=== PATIENT | female | born 1975 | race Caucasian/White ===

== ENCOUNTER 2020-10-19 23:25 | Observation (INO) | payer BC ==
--- NOTE | 2020-10-20 01:40 | EDM.PDOC ---
ED HPI GENERAL MEDICAL PROBLEM - General Chief Complaint: Behavioral/Psych Stated Complaint: DIABETIC/MENTAL HEALTH ISSUES Time Seen by Provider: 10/19/20 23:26 Source of Information: Reports: Patient, EMS History Limitations: Reports: No Limitations - History of Present Illness INITIAL COMMENTS - FREE TEXT/NARRATIVE: Quynh is a 45-year-old female presenting to the ED via [facility] from [facility] [place] this [place]. The patient was in her usual state of health until she started to act confused. Her mother reports that she smoked something that was given to her from somebody she did not know and became combative, argumentative with her mother, and then physically combative. Upon arrival EMS administered 5 of Haldol and 5 of Versed. The patient was placed in restraints and transported to the hospital. Upon arrival to the ED, the patient was calm. She did answer most questions. She reported having a beer and then smoking something. 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 She is unsure of what exactly she smoked but she thought it was marijuana. In addition to the history of abuse, the patient has a history for diabetes. EMS reports that her sugar was 238. On arrival to the ED she is 203. The patient does seem a little lethargic likely secondary to the Versed. 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: See EMS Report - Related Data Allergies Allergy/AdvReac Type Severity Reaction Status Date / Time Penicillins Allergy Rash Verified 10/19/20 23:34 Home Meds: Home Meds Gabapentin [Neurontin] 100 mg PO ASDIRECTED 10/19/20 [History] Insulin Aspart [NovoLOG] 1 unit SQ ASDIRECTED 10/19/20 [History] buPROPion [Wellbutrin SR] 150 mg PO DAILY 10/19/20 [History] Past Medical History Musculoskeletal History: Reports: Fracture, Neck Pain, Chronic Psychiatric History: Reports: Addiction, Anxiety, Bipolar, Depression Endocrine/Metabolic History: Reports: Diabetes, Type I - Infectious Disease History Infectious Disease History: Reports: Chicken Pox Social & Family History - Family History Family Medical History: No Pertinent Family History - Tobacco Use Tobacco Use Status *Q: Current Every Day Tobacco User Years of Tobacco use: 30 Packs/Tins Daily: 0.5 - Caffeine Use Caffeine Use: Reports: Coffee - Alcohol Use Date of Last Drink: 10/19/20 Time of Last Drink: 23:00 - Recreational Drug Use Recreational Drug Use: No ED ROS GENERAL - Review of Systems Review Of Systems: See Below Constitutional: Reports: No Symptoms HEENT: Reports: No Symptoms Respiratory: Reports: No Symptoms Cardiovascular: Reports: No Symptoms Endocrine: Reports: No Symptoms GI/Abdominal: Reports: No Symptoms : Reports: No Symptoms Musculoskeletal: Reports: No Symptoms Skin: Reports: No Symptoms Neurological: Reports: Confusion Psychiatric: Reports: Agitation, Confusion, Other (Psychosis with combativeness) Hematologic/Lymphatic: Reports: No Symptoms Immunologic: Reports: No Symptoms - Physical Exam Exam: See Below Exam Limited By: No Limitations General Appearance: Lethargic Eye Exam: Bilateral Eye: EOMI, PERRL Ears: Normal External Exam, Normal TMs Nose: Normal Inspection Throat/Mouth: Normal Inspection, Normal Oropharynx, Normal Voice, No Airway Compromise Head Exam: Atraumatic, Normocephalic Neck: Normal Inspection, Supple, Non-Tender, Full Range of Motion Respiratory/Chest: No Respiratory Distress, Lungs Clear, Normal Breath Sounds Cardiovascular: Normal Peripheral Pulses, Regular Rate, Rhythm, No Murmur GI/Abdominal: Normal Bowel Sounds, Soft, Non-Tender Neuro Exam (Abbreviated): Alert, CN II-XII Intact, No Motor/Sensory Deficits, Slow to Respond Back Exam: Normal Inspection Extremities: Normal Inspection, Normal Range of Motion, Normal Capillary Refill Psychiatric: Anxious, Depressed Mood Skin Exam: Warm, Dry, Intact, Normal Color #1 Interpretation EKG Date: 10/20/20 Time: 01:36 Rhythm: NSR Rate (Beats/Min): 96 [place]: Normal P-Wave: Enlarged (Left atrial enlargement) QRS: Normal ST-T: Normal QT: Normal Comparison: NA - No Prior EKG Course - Vital Signs Last Recorded V/S: Last Vital Signs Temp 36.6 C 10/19/20 23:28 Pulse 109 H 10/20/20 00:40 Resp 19 10/20/20 00:40 BP 147/77 H 10/20/20 00:40 Pulse Ox 98 10/20/20 00:40 - Orders/Labs/Meds Orders: Active Orders 24 hr Category Date Time Status EKG Documentation Completion [RC] ASDIRECTED Care 10/20/20 01:22 Ordered GLUCOSE POC LAB TO COLLECT JPM [POC] Stat Lab 10/20/20 01:26 Ordered EKG 12 Lead [EK] Routine Ther 10/20/20 01:22 Ordered Labs: Laboratory Tests 10/19/20 10/19/20 10/19/20 Range/Units 22:35 22:35 22:35 WBC 6.0 (4.5-11.0) K/uL RBC 3.68 (3.30-5.50) M/uL Hgb 11.2 L (12.0-15.0) g/dL Hct 32.0 L (36.0-48.0) % MCV 87 (80-98) fL MCH 30 (27-31) pg MCHC 35 (32-36) % Plt Count 342 (150-400) K/uL Neut % (Auto) 64.3 (36-66) % Lymph % (Auto) 23.4 L (24-44) % Gilliam % (Auto) 8.8 H (2-6) % Eos % (Auto) 2.8 (2-4) % Baso % (Auto) 0.7 (0-1) % Sodium 125 L (140-148) mmol/L Potassium 3.7 (3.6-5.2) mmol/L Chloride 89 L (100-108) mmol/L Carbon Dioxide 22 (21-32) mmol/L Anion Gap 17.7 H (5.0-14.0) mmol/L BUN 8 (7-18) mg/dL Creatinine 1.1 H (0.6-1.0) mg/dL Est Cr Clr Drug Dosing 58.73 mL/min Estimated GFR (MDRD) 54 L (>60) Glucose 203 H (74-106) mg/dL POC Glucose (74-106) mg/dL Calcium 8.2 L (8.5-10.1) mg/dL Total Bilirubin 0.5 (0.2-1.0) mg/dL AST 19 (15-37) U/L ALT 18 (12-78) U/L Alkaline Phosphatase 91 (46-116) U/L Total Protein 6.0 L (6.4-8.2) g/dL Albumin 3.2 L (3.4-5.0) g/dL Globulin 2.8 (2.3-3.5) g/dL Albumin/Globulin Ratio 1.1 L (1.2-2.2) Urine Color (YELLOW) Urine Appearance (CLEAR) Urine pH (5.0-8.0) Ur Specific Gary (1.008-1.030) Urine Protein (NEGATIVE) mg/dL Urine Glucose (UA) (NEGATIVE) mg/dL Urine Ketones (NEGATIVE) mg/dL Urine Occult Blood (NEGATIVE) Urine Nitrite (NEGATIVE) Urine Bilirubin (NEGATIVE) Urine Urobilinogen (0.2-1.0) EU/dL Ur Leukocyte Esterase (NEGATIVE) Urine RBC (0-5) Urine WBC (0-5) Ur Epithelial Cells Amorphous Sediment Urine Bacteria Urine Mucus Urine Opiates Screen (NEGATIVE) Ur Oxycodone Screen (NEGATIVE) Urine Methadone Screen (NEGATIVE) Ur Propoxyphene Screen (NEGATIVE) Ur Barbiturates Screen (NEGATIVE) Ur Tricyclics Screen (NEGATIVE) Ur Phencyclidine Scrn (NEGATIVE) Ur Amphetamine Screen (NEGATIVE) U Methamphetamines Scrn (NEGATIVE) Urine MDMA Screen (NEGATIVE) U Benzodiazepines Scrn (NEGATIVE) U Cocaine Metab Screen (NEGATIVE) U Marijuana (THC) Screen (NEGATIVE) Ethyl Alcohol 5 mg/dL 10/20/20 10/20/20 10/20/20 Range/Units 00:27 00:27 01:09 WBC (4.5-11.0) K/uL RBC (3.30-5.50) M/uL Hgb (12.0-15.0) g/dL Hct (36.0-48.0) % MCV (80-98) fL MCH (27-31) pg MCHC (32-36) % Plt Count (150-400) K/uL Neut % (Auto) (36-66) % Lymph % (Auto) (24-44) % Gilliam % (Auto) (2-6) % Eos % (Auto) (2-4) % Baso % (Auto) (0-1) % Sodium (140-148) mmol/L Potassium (3.6-5.2) mmol/L Chloride (100-108) mmol/L Carbon Dioxide (21-32) mmol/L Anion Gap (5.0-14.0) mmol/L BUN (7-18) mg/dL Creatinine (0.6-1.0) mg/dL Est Cr Clr Drug Dosing mL/min Estimated GFR (MDRD) (>60) Glucose (74-106) mg/dL POC Glucose 175 H (74-106) mg/dL Calcium (8.5-10.1) mg/dL Total Bilirubin (0.2-1.0) mg/dL AST (15-37) U/L ALT (12-78) U/L Alkaline Phosphatase (46-116) U/L Total Protein (6.4-8.2) g/dL Albumin (3.4-5.0) g/dL Globulin (2.3-3.5) g/dL Albumin/Globulin Ratio (1.2-2.2) Urine Color Yellow (YELLOW) Urine Appearance Clear (CLEAR) Urine pH 7.0 (5.0-8.0) Ur Specific Gary 1.020 (1.008-1.030) Urine Protein Negative (NEGATIVE) mg/dL Urine Glucose (UA) 100 H (NEGATIVE) mg/dL Urine Ketones Negative (NEGATIVE) mg/dL Urine Occult Blood Negative (NEGATIVE) Urine Nitrite Negative (NEGATIVE) Urine Bilirubin Negative (NEGATIVE) Urine Urobilinogen 0.2 (0.2-1.0) EU/dL Ur Leukocyte Esterase Negative (NEGATIVE) Urine RBC 0-5 (0-5) Urine WBC 0-5 (0-5) Ur Epithelial Cells Few Amorphous Sediment Few Urine Bacteria Few Urine Mucus Not seen Urine Opiates Screen Negative (NEGATIVE) Ur Oxycodone Screen Negative (NEGATIVE) Urine Methadone Screen Negative (NEGATIVE) Ur Propoxyphene Screen Negative (NEGATIVE) Ur Barbiturates Screen Negative (NEGATIVE) Ur Tricyclics Screen Negative (NEGATIVE) Ur Phencyclidine Scrn Negative (NEGATIVE) Ur Amphetamine Screen Negative (NEGATIVE) U Methamphetamines Scrn Negative (NEGATIVE) Urine MDMA Screen Negative (NEGATIVE) U Benzodiazepines Scrn Negative (NEGATIVE) U Cocaine Metab Screen Negative (NEGATIVE) U Marijuana (THC) Screen Negative (NEGATIVE) Ethyl Alcohol mg/dL - Re-Assessments/Exams Free Text/Narrative Re-Assessment/Exam: 10/20/20 01:41 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 She has been through treatment for 6 months and today was at the [facility] in [place] and unfortunately relapsed drinking a beer and smoking what appeared to be a joint. This resulted in her becoming psychotic and combative. EMS was summoned and when they encountered the patient they treated her with 5 of Versed and 5 of Haldol IM. Patient was ultimately placed in four-point restraints and transported to the hospital. Upon arrival to the ED the patient was calm and cooperative. Her work-up today is demonstrated a normal urine tox screen suggesting that she may have smoked synthetic marijuana like K2 or spice which may have contributed to her psychoses. In addition, her work-up is shown that she has a sodium of 125 and a chloride of 89. Her calcium is borderline with a corrected calcium of 8.4. This in combination with the unknown smoked substance I believe contributed to her psychoses. Patient has been running a little high on the blood sugars at around 200. She will likely need to be admitted to the hospital overnight under observation for correction of her sodium and repletion of fluids. I discussed the case with Dr. Mari who felt that she was suitable for treatment on the floor and did not require an ICU. I discussed the case with Dona Ortiz, HIM SPECIALIST will arrange for admission of the patient for treatment of hyponatremia. An EKG was obtained showing normal sinus rhythm with rate 96 bpm. She has left atrial enlargement. There is no ST elevation or depression otherwise noted. 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 - Discharge Information Referrals: PCP,None [Primary Care Provider] - Sepsis Event Note (ED) - Evaluation Sepsis Screening Result: No Definite Risk - Focused Exam Vital Signs: Vital Signs Temp Pulse Resp BP Pulse Ox 10/20/20 00:40 109 H 19 147/77 H 98 10/19/20 23:51 124 H 26 H 117/68 98 10/19/20 23:28 36.6 C 128 H 24 H 133/68 96 - Problem List & Annotations (1) Hyponatremia syndrome SNOMED Code(s): 0005185 Code(s): E87.1 - HYPO-OSMOLALITY AND HYPONATREMIA Status: Acute Priority: High Current Visit: Yes (2) 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
[2020-10-20] MEDS ORDERED: Pantoprazole 40 MG Vial IV ONE (02:48)
[2020-10-20] MEDS ORDERED: oxyCODONE 5 MG Tab PO PRN (02:48)
[2020-10-20] MEDS ORDERED: Sodium Chloride 0.9% 1,000 ML IV SCH (02:48)
[2020-10-20] MEDS ORDERED: Albuterol 0.083% 2.5 MG/3 ML Neb Soln NEB PRN (02:48)
[2020-10-20] MEDS ORDERED: 50% Dextrose in Water 50 ML Syringe IVPUSH PRN (02:48)
[2020-10-20] MEDS ORDERED: Gabapentin 100 MG Cap PO PRN (02:48)
[2020-10-20] MEDS ORDERED: Ondansetron 4 MG Tab.DIS PO PRN (02:48)
[2020-10-20] MEDS ORDERED: Ondansetron 4 MG/2 ML SDV IV PRN (02:48)
[2020-10-20] MEDS ORDERED: Morphine 2 MG/ML SYRINGE IVPUSH PRN (02:48)
[2020-10-20] MEDS ORDERED: Acetaminophen 325 MG Tab PO PRN (02:48)
[2020-10-20] MEDS ORDERED: Glucagon,Human Recombinant 1 MG Vial IM PRN (02:48)
[2020-10-20] MEDS ORDERED: Nicotine 14 MG/24 Hr Patch TRDERM SCH (02:48)
[2020-10-20] MEDS ORDERED: Docusate Sodium 100 MG Cap PO PRN (02:48)
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
[2020-10-20] MEDS ORDERED: Insulin Lispro 100 Unit/ML 3 ML KwikPen SUBCUT SCH (07:00)
[2020-10-20] MEDS ORDERED: buPROPion 150 MG Tab.SR PO SCH (09:00)
[2020-10-20] MEDS ORDERED: buPROPion 150 MG Tab.ER PO SCH (09:00)
[2020-10-20] MEDS ORDERED: Insulin Glargine,Human Rec. Analog 100 Units/ML 3 ML Pen SUBCUT SCH (09:00)
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
== END 2020-10-20 10:48 | disposition home or self-care (01) ==
LOC: JP.ED 23:25 → JP.MS 10-20 02:32
PROVIDERS: ADMIT Internal Medicine; ATTEND Internal Medicine
DX: E87.1 Hypo-osmolality and hyponatremia (principal); F18.9 Inhalant use, unspecified; F17.210 Nicotine dependence, cigarettes, uncomplicated; E10.9 Type 1 diabetes mellitus without complications; Z88.0 Allergy status to penicillin; Z79.899 Other long term (current) drug therapy
CPT/HCPCS: 36415; 80048; 80053; 80305-QW; 80307; 81001; 82570; 82947; 84300; 85025; 93005; 93010; 99284; A9270-GY; C9113; J1815; J1815-GY; J7030